=== PATIENT | female | born 1995 | race African-American/Black ===

== ENCOUNTER → 2016-09-12 | Outpatient (CLI) | payer BC, OTHER ==
[~2016-09-12] MED LIST: BACTRIM,SEPT1 TABLET PO; Diflucan PO; ERGOCALCIF50000 UNIT PO; FLONASE16 GM NS; GLUCOMETER; LANTUS 3 M100 UNITS1 SC; MOTRIN600 MG PO; NUVIGIL250 MG PO; NovoLOG, HumaLOG SC; RITALIN LA20 MG PO; TESSALON PERLE100 MG PO
[2016-09-12 08:50] LABS: PROTHROMBIN TIME 10.2 (9.2-11.2); PTT 27.7 (25-32)
[2016-09-12 10:24] LABS: POINT-OF-CARE METER ID UU13113819
== END | disposition home or self-care (01) ==
LOC: OPR 07:44 → EDSTATUS 08:00
PROVIDERS: Internal Medicine Nephrology; Internal Medicine Pulmonary Disease
PROC: 0TB13ZX Excision of Left Kidney, Percutaneous Approach, Diagnostic (ICD-10-PCS; principal; 2016-09-12)
DX: R80.9 Proteinuria, unspecified (principal); E10.22 Type 1 diabetes mellitus with diabetic chronic kidney disease; N18.1 Chronic kidney disease, stage 1; E55.9 Vitamin D deficiency, unspecified; E66.9 Obesity, unspecified; Z68.38 Body mass index [BMI] 38.0-38.9, adult; G47.419 Narcolepsy without cataplexy; Z82.49 Family history of ischemic heart disease and other diseases of the circulatory system; Z83.3 Family history of diabetes mellitus
CPT/HCPCS: 77012; 82948; 85610; 85730; 88305; 88313 90; 88346 90; 88348 90; J3010